=== PATIENT | female | born 1960 | race Caucasian/White ===

== ENCOUNTER 2020-04-25 10:43 | Emergency (ER) | payer MEDICAID, OTHER ==
[~2020-04-25] VITALS: Ht 165.1 cm; Wt 62.6 kg
[2020-04-25 11:34] VITALS: BP 91/73
== END 2020-04-25 12:13 | disposition home or self-care (01) ==
LOC: ER 10:43
DX: K08.89 Other specified disorders of teeth and supporting structures (principal); Z90.49 Acquired absence of other specified parts of digestive tract